=== PATIENT | male | born 1985 | race Caucasian/White ===

== ENCOUNTER 2016-08-26 14:10 | Emergency (ER) | payer OTHER ==
[~2016-08-26] VITALS: Ht 185.4 cm; Wt 89.4 kg
[~2016-08-26 14:10] MED LIST: OSEL75CA12 PO
[2016-08-26 14:13] VITALS: TEMP 36.8; Ht 185.4 cm; Wt 89.4 kg
[2016-08-26] MEDS ORDERED: SODIUM CHLORIDE 0.9% 1000ML 2,000 ML IV STA (15:12)
[2016-08-26] MEDS ORDERED: KETOROLAC TROMETHAMINE 30 MG/ML VIAL IV STA (15:12)
[2016-08-26] MEDS ORDERED: MoRPHine SULFATE 4 MG/ML 1 ML CARP\\VIAL IV STA (15:12)
[2016-08-26] MEDS ORDERED: ONDANSETRON INJ 2 MG/ML 2 ML VIAL IV STA (15:12)
[2016-08-26] MEDS ORDERED: IMIQ0.00 TOP (15:21)
[2016-08-26 16:10] LABS: BASO % 0.1 %; BASO ABS # 0.01 K/uL (0-0.2); COMPLETE YES; EOS % 1.9 %; HEMATOCRIT 47.7 % (42-52); IG% 0.5 %; LYMPH % 24.2 %; LYMPH ABS # 2.02 K/uL (1.2-3.4); MEAN CELL VOLUME 89.7 fL (80-100); MEAN CORPUSCULAR HGB CONC 35.6 g/dl (32-36); MEAN PLATELET VOLUME 10.8 fL (7.4-10.4); MONO % 7.2 %; NEUT % 66.1 %; PLATELET COUNT 206 K/uL (130-400); RED BLOOD COUNT 5.32 M/uL (4.7-6.1); WHITE BLOOD COUNT 8.35 K/uL (4.8-10.8)
[2016-08-26 16:26] LABS: URINE APPEARANCE CLEAR (CLEAR); URINE BILIRUBIN NEG (NEG); URINE COLOR YELLOW; URINE EPITHELIAL CELL AUTO 0-5 /lpf (0-5); URINE NITRITE NEG (NEG); URINE SPECIFIC GRAVITY 1.022 (1.000-1.030); UROBILINOGEN NEG (NEG); ZZUR CULT IF INDIC CLEAN CATCH NO
[2016-08-26 16:27] LABS: ALT/SGPT 41 U/L (12-78); BLOOD UREA NITROGEN 13 mg/dl (7-18); BUN/CREATININE RATIO 9.8 (10-20); CALCIUM 8.8 mg/dl (8.5-10.1); CARBON DIOXIDE 29 mmol/L (21-32); CHLORIDE 106 mmol/L (98-107); GLUCOSE 89 mg/dl (70-99); SODIUM 139 mmol/L (136-145)
[2016-08-26 16:30] LABS: ALKALINE PHOSPHATASE 72 U/L (45-117); AST/SGOT 16 U/L (15-37); MANUAL MICROSCOPIC REQUIRED? NO; REVIEW REQ? NO
--- NOTE | 2016-08-26 17:01 | DIAGNOSTIC IMAGING REPORT ---
ABDOMINAL ULTRASOUND, RIGHT UPPER QUADRANT HISTORY: Right upper quadrant abdominal pain. COMPARISON: None. FINDINGS: The liver is sonographically normal. There are no gallstones. No biliary ductal dilatation. The pancreatic body is normal. The head and tail are obscured. There is no right hydronephrosis. IMPRESSION: No significant abnormality identified within the right upper quadrant. Electronically signed by: Ankur Shepherd M.D. 08/26/2016 4:59 PM Dictated Date/Time: 08/26/2016 4:57 PM
[2016-08-26 17:47] LABS: LYME DISEASE AB IGG NEG (NEG); LYME DISEASE AB IGM NEG (NEG)
[2016-08-26 18:45] VITALS: BP 137/77; PULSE 85; O2SAT 98
--- NOTE | 2016-08-26 23:04 | EMERGENCY ROOM VISIT NOTE ---
History Report prepared by Maura: August Gomez Under the Supervision of: Dr. Arcenio Zaidi D.O. First contact with patient: 14:49 Chief Complaint: DIARRHEA Stated Complaint: SEVERE DIARRHEA, MUNOZ, DIZZY, HYPERTENSION, ABD. TOMEKA Nursing Triage Summary: pt c/o diarrhea for 2 weeks. since yesterday patient c/o headache, increased abdominal pain, joint pain and dizziness. pt referred from PCP. History of Present Illness The patient is a 30 year old male who presents to the Emergency Room with complaints of a worsening illness that started around 2 weeks ago. He says that he was seen at his [place] primary care physician earlier today, and was referred here for evaluation and treatment. The patient states that he has been having severe diarrhea around 3 to 5 times per day for the past few weeks. He describes the diarrhea as bright green with "little black things in it", but denies any melena or hematochezia. The patient says that his diarrhea worsened yesterday, and he woke up with severe generalized joint pain that goes down to his knees and ankles. The patient also has been having worsening abdominal pain , especially in his right upper quadrant, as well as a worsening migraine with dizziness and a bit of a sore throat. His abdominal pain worsened earlier today , and does not change with eating or drinking. He states that he feels like the room is spinning. The patient has no history of migraines. He denies any fevers, vomiting, nausea, chest pain, shortness of breath, ear pain, or pain or burning with urination. The patient notes that he was in [place] last week, and in [place] a few weeks before that. He says that the area in [place] he was in has a lot of ticks. The patient states that he was not backpacking, hiking, or drinking from streams. He denies any recent antibiotic use or any medical problems. The patient states that he has been keeping up with drinking Gatorade and water. His primary care physician was concerned with dehydration, however. The patient has no previous abdominal surgeries. Source of History: patient Onset: Around 2 weeks ago Position: other (global - illness) Timing: worsening Associated Symptoms: + sorethroat, + abdominal pain, + diarrhea, No fevers, No chest pain, No SOB, No nausea, No vomiting, No melena, No hematochezia, No urinary symptoms Note: Associated symptoms: Severe generalized joint pain that goes down to knees and ankles. Dizziness. Denies ear pain. Review of Systems See HPI for pertinent positives & negatives. A total of 10 systems reviewed and were otherwise negative. Past Medical & Surgical Medical Problems: (1) No Known Active Medical Problems Family History Diabetes mellitus FH: cancer Hypertension Social History Smoking Status: Never Smoker Smokeless Tobacco Use: No Alcohol Use: occasionally Occupation Status: employed Current/Historical Medications Scheduled Imiquimod (Imiquimod), 1 APPLN TOP UD Allergies Coded Allergies: Ciprofloxacin (Verified Allergy, Intermediate, Hallucinations, 08/26/16) Cefaclor (Verified Allergy, Unknown, HIVES, 08/26/16) AND SOB Physical Exam Vital Signs Date Time Temp Pulse Resp B/P (MAP) Pulse Ox O2 Delivery O2 Flow Rate FiO2 08/26/16 18:45 85 18 137/77 98 08/26/16 18:15 85 18 137/77 98 Room Air 08/26/16 15:47 82 18 135/80 97 Room Air 08/26/16 14:13 36.8 98 20 130/87 98 Room Air Physical Exam GENERAL: sitting up in bed, disheveled, no acute distress, nontoxic EYE EXAM: normal conjunctiva OROPHARYNX: no exudate, no erythema, lips, buccal mucosa, and tongue normal and mucous membranes are moist NECK: supple, no nuchal rigidity, no adenopathy, non-tender LUNGS: Clear to auscultation. Normal chest wall mechanics HEART: no murmurs, S1 normal and S2 normal ABDOMEN: abdomen soft, minimal tenderness in right upper quadrant, normo-active bowel sounds, no masses, no rebound or guarding. BACK: No CVA tenderness SKIN: no rashes and no bruising UPPER EXTREMITIES: upper extremities are grossly normal. LOWER EXTREMITIES: No pitting edema. NEURO EXAM: Normal sensorium, cranial nerves II-XII grossly intact, normal speech, no gross weakness of arms, no gross weakness of legs. Medical Decision & Procedures ER Provider Diagnostic Interpretation: US results as stated below per my review and the radiologist's interpretation: ABDOMINAL ULTRASOUND, RIGHT UPPER QUADRANT HISTORY: Right upper quadrant abdominal pain. COMPARISON: None. FINDINGS: The liver is sonographically normal. There are no gallstones. No biliary ductal dilatation. The pancreatic body is normal. The head and tail are obscured. There is no right hydronephrosis. IMPRESSION: No significant abnormality identified within the right upper quadrant. Electronically signed by: Ankur Shepherd M.D. 08/26/2016 4:59 PM Dictated Date/Time: 08/26/2016 4:57 PM Laboratory Results 08/26/16 15:40 Red Blood Count 5.32, Mean Corpuscular Volume 89.7, Mean Corpuscular Hemoglobin 32.0, Mean Corpuscular Hemoglobin Concent 35.6, Mean Platelet Volume 10.8, Neutrophils (%) (Auto) 66.1, Lymphocytes (%) (Auto) 24.2, Monocytes (%) (Auto) 7.2, Eosinophils (%) (Auto) 1.9, Basophils (%) (Auto) 0.1, Neutrophils # (Auto) 5.52, Lymphocytes # (Auto) 2.02, Monocytes # (Auto) 0.60, Eosinophils # (Auto) 0.16, Basophils # (Auto) 0.01 08/26/16 15:40 Test 08/26/16 15:40 White Blood Count 8.35 K/uL (4.8-10.8) Red Blood Count 5.32 M/uL (4.7-6.1) Hemoglobin 17.0 g/dL (14.0-18.0) Hematocrit 47.7 % (42-52) Mean Corpuscular Volume 89.7 fL (80-100) Mean Corpuscular Hemoglobin 32.0 pg (25-34) Mean Corpuscular Hemoglobin Concent 35.6 g/dl (32-36) Platelet Count 206 K/uL (130-400) Mean Platelet Volume 10.8 fL (7.4-10.4) Neutrophils (%) (Auto) 66.1 % Lymphocytes (%) (Auto) 24.2 % Monocytes (%) (Auto) 7.2 % Eosinophils (%) (Auto) 1.9 % Basophils (%) (Auto) 0.1 % Neutrophils # (Auto) 5.52 K/uL (1.4-6.5) Lymphocytes # (Auto) 2.02 K/uL (1.2-3.4) Monocytes # (Auto) 0.60 K/uL (0.11-0.59) Eosinophils # (Auto) 0.16 K/uL (0-0.5) Basophils # (Auto) 0.01 K/uL (0-0.2) RDW Standard Deviation 39.5 fL (36.4-46.3) RDW Coefficient of Variation 12.1 % (11.5-14.5) Immature Granulocyte % (Auto) 0.5 % Immature Granulocyte # (Auto) 0.04 K/uL (0.00-0.02) Urine Color YELLOW Urine Appearance CLEAR (CLEAR) Urine pH 6.0 (4.5-7.5) Urine Specific [place] 1.022 (1.000-1.030) Urine Protein NEG (NEG) Urine Glucose (UA) NEG (NEG) Urine Ketones NEG (NEG) Urine Occult Blood NEG (NEG) Urine Nitrite NEG (NEG) Urine Bilirubin NEG (NEG) Urine Urobilinogen NEG (NEG) Urine Leukocyte Esterase NEG (NEG) Urine WBC (Auto) 0 /hpf (0-5) Urine RBC (Auto) 0-4 /hpf (0-4) Urine Hyaline Casts (Auto) 0 /lpf (0-5) Urine Epithelial Cells (Auto) 0-5 /lpf (0-5) Urine Bacteria (Auto) NEG (NEG) Anion Gap 4.0 mmol/L (3-11) Est Creatinine Clear Calc Drug Dose 93.0 ml/min Estimated GFR () 84.3 Estimated GFR (Non- 72.7 BUN/Creatinine Ratio 9.8 (10-20) Calcium Level 8.8 mg/dl (8.5-10.1) Total Bilirubin 0.4 mg/dl (0.2-1) Direct Bilirubin < 0.1 mg/dl (0-0.2) Aspartate Amino Transf (AST/SGOT) 16 U/L (15-37) Alanine Aminotransferase (ALT/SGPT) 41 U/L (12-78) Alkaline Phosphatase 72 U/L (45-117) Total Protein 6.9 gm/dl (6.4-8.2) Albumin 3.6 gm/dl (3.4-5.0) Lipase 178 U/L (73-393) Lyme Disease IgG Antibody NEG (NEG) Lyme Disease IgM Antibody NEG (NEG) Date/Time Source Procedure Growth Status 08/26/16 15:40 Stool C.difficile Toxin B Gene (PCR) - Final No C. difficile toxin B gene detected Complete Laboratory results per my review. Medications Administered Medications (Trade) Dose Ordered Sig/Tyrell Route Start Time Stop Time Status Last Admin Dose Admin Morphine Sulfate (MoRPHine SULFATE INJ) 4 mg NOW STAT IV 08/26/16 15:12 08/26/16 15:13 DC 08/26/16 15:44 4 MG Ketorolac Tromethamine (Toradol Inj) 30 mg NOW STAT IV 08/26/16 15:12 08/26/16 15:13 DC 08/26/16 15:43 30 MG Ondansetron HCl (Zofran Inj) 4 mg NOW STAT IV 08/26/16 15:12 08/26/16 15:13 DC 08/26/16 15:43 4 MG Sodium Chloride 2,000 ml @ 999 mls/hr Q2H1M STAT IV 08/26/16 15:12 08/26/16 17:12 DC 08/26/16 15:42 999 MLS/HR ED Course ED COURSE: Vital signs were reviewed and showed hypertensive vitals. The patients medical record was reviewed The above diagnostic studies were performed and reviewed. ED treatments and interventions as stated above. 1452: The patient was evaluated in room C5. A complete history and physical examination was performed. 1512: Ordered NSS 2000 ml @ 999 mls/hr IV, Zofran Inj 4 mg IV, Toradol Inj 30 mg IV, Morphine Sulfate Inj 4 mg IV. 1810: Upon reevaluation, the patient is resting comfortably.I discussed my findings with the patient and he understands and agrees with the treatment plan. Based on the patients age, coexisting illnesses, exam and lab findings the decision to treat as an outpatient was made. The patient remained stable while under my care. The patient appeared well at the time of discharge. Medical Decision Differential diagnoses includes but is not limited to gastritis, peptic ulcer disease, GERD, gallbladder disease, pancreatitis, small bowel obstruction, acute coronary syndrome, pericarditis, ischemic bowel, irritable bowel disease, irritable bowel syndrome, appendicitis, diverticulitis, malignancy, hernia, urinary tract infection, torsion, perforation, trauma, infectious. Blood Pressure Screening: The patient was found to have a slightly elevated blood pressure due to circumstances. I do not believe that the patient requires hypertension monitoring. Medication Reconciliation: I attest that I have personally reviewed the patient' s current medication list. Patient is a 30-year-old male who presents the ER for diarrhea which has been present for the past 2 weeks. No travel outside the [place]. No drinking from streams. No significant past medical history. He also admits to right upper quadrant abdominal pain which started earlier today. His abdominal exam is fairly benign. CBC along with BMP, LFTs, bilirubin and lipase were normal. UA was negative. Lyme was negative. He is given fluids and pain medication with improvement of symptoms. Ultrasound of the gallbladder Was negative. C. difficile was negative. Patient was updated at bedside and discharged follow- up with his PCP for abdominal pain and persistent diarrhea. Discussed with Pt concerning signs and symptoms to watch out for. Pt was instructed to follow up with their PCP and discussed with the patient their option to return to the ED at anytime for persistent or worsening symptoms. The appropriate anticipatory guidance and out-patient management, including indications for return to the emergency department, were explained at length to the patient and understood. Impression Primary Impression: Abdominal pain Additional Impression: Diarrhea Scribe Attestation The scribe's documentation has been prepared under my direction and personally reviewed by me in its entirety. I confirm that the note above accurately reflects all work, treatment, procedures, and medical decision making performed by me. Departure Information Dispostion Home / Self-Care Referrals No Doctor, Assigned (PCP) Chela Hines PA-C Forms HOME CARE DOCUMENTATION FORM, IMPORTANT VISIT INFORMATION, WORK / SCHOOL INSTRUCTIONS Patient Instructions Abdominal Pain - [facility], ED Diarrhea Viral, My [facility] Additional Instructions Please follow up with your primary care doctor with in the next 24 hours. Any worsening of your symptoms, please return to the ED immediately. This includes fevers greater than 100.4, blood in your stool, passing out, worsening pain, persistent nausea vomiting, or any other concerning signs or symptoms from your stand point. Please follow up with GI in the next 3-5 days. You'll receive a phone call from the ER if your stool cultures are positive in the next 48 hours. Problem Qualifiers Primary Impression: Abdominal pain Abdominal location: unspecified location Qualified Codes: R10.9 - Unspecified abdominal pain Additional Impression: Diarrhea Diarrhea type: unspecified type Qualified Codes: R19.7 - Diarrhea, unspecified
== END 2016-08-26 18:47 | disposition home or self-care (01) ==
LOC: C.EDB 14:11 → C.EDC 18:47
DX: R10.9 Unspecified abdominal pain (principal); R19.7 Diarrhea, unspecified; Z83.3 Family history of diabetes mellitus; Z82.49 Family history of ischemic heart disease and other diseases of the circulatory system

== ENCOUNTER 2016-12-06 17:29 | Emergency (ER) | payer OTHER ==
[~2016-12-06] VITALS: Ht 185.4 cm; Wt 89.5 kg
[~2016-12-06 17:29] MED LIST changes: +IMIQ0.00 TOP; -OSEL75CA12 PO
[2016-12-06 17:34] VITALS: TEMP 36.9; Ht 185.4 cm; Wt 89.5 kg
--- NOTE | 2016-12-06 19:48 | DIAGNOSTIC IMAGING REPORT ---
TESTICULAR ULTRASOUND CLINICAL HISTORY: Left testicular pain COMPARISON STUDY: No previous studies for comparison. FINDINGS: The right testis measures 58 x 27 x 40 mm. The left testis measures 58 x 20 x 35 mm. No intratesticular masses are visualized. There is no evidence of testicular torsion. There is no evidence of epididymal hyperemia. There is trace bilateral scrotal fluid. IMPRESSION: 1. No evidence of intratesticular mass 2. No evidence of testicular torsion Electronically signed by: Sourav Baker M.D. 12/06/2016 7:47 PM Dictated Date/Time: 12/06/2016 7:46 PM
[2016-12-06] MEDS ORDERED: LEVO-366 PO (20:04)
[2016-12-06 20:29] VITALS: BP 140/70; PULSE 70; O2SAT 98
--- NOTE | 2016-12-07 01:20 | EMERGENCY ROOM VISIT NOTE ---
History Report prepared by Maura: Sandra Savage Under the Supervision of: Dr. Bonifacio Rodriguez M.D. First contact with patient: 18:02 Chief Complaint: TESTICULAR PAIN Stated Complaint: TESTICULAR PAIN- PHYSICIAN REFERRED Nursing Triage Summary: pt sent here by pcp for possible testicular torsion. pain started yesterday. feels nauseated. left testicle History of Present Illness The patient is a 31 year old male who presents to the Emergency Room with complaints of constant throbbing left testicle pain beginning yesterday afternoon. The patient states that he began feeling throbbing pain in his left testicle yesterday that radiates into his abdomen. He reports that the pain is in the area where the "cord meets the testicle" and notes that there is a hard region on the testicle. The patient explains that it feels sensitive like he was kicked in the testicle and the pain will not resolve. He complains of nausea and urinary frequency. He denies any fever, vomiting, and penile discharge. The patient states that he is not sexually active and when he was years ago, he used protection and was active with men. He denies any history of STIs. He notes that he was just seen by his PCP and they did a urinalysis that was clear. Source of History: patient Onset: yesterday afternoon Position: other (left testicle) Quality: other (throbbing) Timing: constant Associated Symptoms: + nausea, No fevers, No vomiting Note: He complains of urinary frequency. He denies any penile discharge. Review of Systems See HPI for pertinent positives & negatives. A total of 10 systems reviewed and were otherwise negative. Past Medical & Surgical Medical Problems: (1) No Known Active Medical Problems Family History Diabetes mellitus FH: cancer Hypertension Social History Smoking Status: Never Smoker Alcohol Use: occasionally Occupation Status: employed Current/Historical Medications Scheduled Imiquimod (Imiquimod), 1 APPLN TOP UD Levofloxacin (Levaquin), 500 MG PO DAILY Allergies Coded Allergies: Ciprofloxacin (Verified Allergy, Intermediate, Hallucinations, 12/06/16) Cefaclor (Verified Allergy, Unknown, HIVES, 12/06/16) AND SOB Levofloxacin (Unverified Allergy, Unknown, PSYCHOTIC, 12/06/16) Physical Exam Vital Signs Date Time Temp Pulse Resp B/P (MAP) Pulse Ox O2 Delivery O2 Flow Rate FiO2 12/06/16 20:29 70 18 140/70 98 12/06/16 17:34 36.9 87 18 166/102 98 Room Air Physical Exam Constitutional: Vital signs reviewed. Eyes: Pupils are equal round reactive to light. Conjunctiva are noninjected. ENT: Pharynx is clear without erythema or exudate. Mucous membranes are moist. Neck supple without meningeal signs. Respiratory: Clear to auscultation bilaterally. Breath sounds are equal bilaterally. Cardiovascular: Regular rate and rhythm. No rubs or gallops. GI: Soft, nondistended and nontender. Bowel sounds are present. Musculoskeletal: No peripheral edema. No lower extremity tenderness. Integumentary: No cyanosis. Neurological: The patient is awake and alert. No focal deficits. Psychiatric: Normal affect. : Left superior testicular tenderness, normal cremasteric reflexes bilaterally , no urethral discharge, no swelling or redness to the scrotum. No inguinal hernias. Medical Decision & Procedures ER Provider Diagnostic Interpretation: Radiology results as stated below per my review and the radiologist's interpretation: TESTICULAR ULTRASOUND FINDINGS: The right testis measures 58 x 27 x 40 mm. The left testis measures 58 x 20 x 35 mm. No intratesticular masses are visualized. There is no evidence of testicular torsion. There is no evidence of epididymal hyperemia. There is trace bilateral scrotal fluid. IMPRESSION: 1. No evidence of intratesticular mass 2. No evidence of testicular torsion Electronically signed by: Sourav Baker M.D. 12/06/2016 7:47 PM Dictated Date/Time: 12/06/2016 7:46 PM Laboratory Results Test 12/06/16 18:10 Laboratory results as reviewed by me. ED Course 180: The patient was evaluated in room A9. A complete history and physical exam was performed. 1955: I updated the patient on his test results. He says that he is not allergic to Fluoroquinolones and can take Cipro or Levaquin. 2002: Upon reevaluation, the patient appeared to have improvement of his symptoms. I discussed tonight's findings with the patient. He verbalized agreement of the treatment plan. The patient was discharged home. 2026: The patient states that he cannot take Levaquin but can take Cipro which he states his PCP called in for him. He states that the coverage for bacteria is not optimal for his diagnosis. Medical Decision This is a 31-year-old male who presents with testicular tenderness. Differential diagnosis includes epididymitis, orchitis, STI, kidney stone, testicular torsion, testicular mass. I did perform a limited focused review of portions of the patient's old chart on the electronic medical record. The patient has had no recent pertinent visits to this hospital. I did evaluate the patient as noted above. The patient is presenting with testicular tenderness on the left side since yesterday. On examination he has tenderness over the left superior testicle and epididymis. He did complain of some urinary complaints but had a urinalysis done at his doctor's office prior to arrival which was reported as normal. He is sexually active with men but has not been active for over a year and a half and was tested for GC and chlamydia in the interim. He states he has never had unprotected sex order a history of STI. I did obtain urethral swab for GC and chlamydia. I did order an ultrasound of the scrotum. I did review the images myself as well as the radiology report as described above. There is no evidence of torsion or acute abnormality. I did discuss the test results with patient. I did wish to treat him for epididymoorchitis. Unfortunately he does have several drug allergies and adverse reactions which limited the antibiotic choice. He does state that he can take Cipro but he cannot take Levaquin. He does state that he has a true allergy to cephalosporins. He states that his doctor already called in a prescription for Cipro which he will take. He was advised to follow closely with his doctor and he was discharged in good condition. He was given return instructions as outlined below. Medication Reconcilliation Current Medication List: was personally reviewed by me Blood Pressure Screening Patient's blood pressure: Elevated blood pressure Blood pressure disposition: Referred to PCP Impression Primary Impression: Epididymo-orchitis Scribe Attestation The scribe's documentation has been prepared under my direct and personally reviewed by me in its entirety. I confirm that the note above accurately reflects all work, treatment, procedures, and medical decision making performed by me. Departure Information Dispostion Home / Self-Care Prescriptions Levofloxacin (Levaquin) 500 Mg Tab 500 MG PO DAILY for 10 Days, #10 TAB Prov: Bonifacio Rodriguez M.D. 12/06/16 Referrals Chela Hines PA-C (PCP) Forms HOME CARE DOCUMENTATION FORM, IMPORTANT VISIT INFORMATION, WORK / SCHOOL INSTRUCTIONS Patient Instructions Epididymitis Orchitis, My [facility] Additional Instructions You have been examined and treated today on an emergency basis only. This is not a substitute for, or an effort to provide, complete comprehensive medical care. It is impossible to recognize and treat all injuries or illnesses in a single emergency department visit. It is therefore important that you follow up closely with your physician. Call as soon as possible for an appointment. Return for worsening symptoms or if you develop fever, vomiting, discharge from the penis, redness or swelling to your testicle or any other concerning symptoms.
[2016-12-09 00:32] LABS: CHLAMYDIA TRACH RNA*** NOT DETECTED (NOT DETECTED); GC (NEIS GONORRHOEAE)RNA** NOT DETECTED (NOT DETECTED)
== END 2016-12-06 20:30 | disposition home or self-care (01) ==
LOC: C.EDB 17:31 → C.EDA 20:30
DX: N45.3 Epididymo-orchitis (principal); Z83.3 Family history of diabetes mellitus; Z82.49 Family history of ischemic heart disease and other diseases of the circulatory system

== ENCOUNTER 2017-02-06 19:14 | Emergency (ER) | payer OTHER ==
[~2017-02-06] VITALS: Ht 185.4 cm; Wt 101.6 kg
[~2017-02-06 19:14] MED LIST changes: -IMIQ0.00 TOP; +IMIQ5CRE4 TOP
[2017-02-06 19:20] VITALS: TEMP 37.1; Ht 185.4 cm; Wt 101.6 kg
[2017-02-06] MEDS ORDERED: SODIUM CHLORIDE 0.9% 1000ML 1,000 ML IV STA (19:41)
[2017-02-06] MEDS ORDERED: ONDANSETRON INJ 2 MG/ML 2 ML VIAL IV STA (19:41)
[2017-02-06] MEDS ORDERED: MoRPHine SULFATE 4 MG/ML 1 ML CARP\\VIAL IV STA (19:41)
[2017-02-06] MEDS ORDERED: MoRPHine SULFATE 4 MG/ML 1 ML CARP\\VIAL IV PRN (19:45)
[2017-02-06] MEDS ORDERED: OPTIRAY 320 IV PRN (19:45)
[2017-02-06] MEDS ORDERED: DiphenhydrAMINE HCL 50 MG/ML VIAL IV STA (20:02)
[2017-02-06] MEDS ORDERED: DiphenhydrAMINE HCL 50 MG/ML VIAL ONE (20:04)
[2017-02-06 20:09] LABS: BASO % 0.1 %; BASO ABS # 0.01 K/uL (0-0.2); COMPLETE YES; EOS % 1.1 %; HEMATOCRIT 44.1 % (42-52); IG% 0.4 %; LYMPH % 24.6 %; LYMPH ABS # 2.49 K/uL (1.2-3.4); MEAN CELL VOLUME 88.7 fL (80-100); MEAN CORPUSCULAR HEMOGLOBIN 31.8 pg (25-34); MEAN CORPUSCULAR HGB CONC 35.8 g/dl (32-36); MEAN PLATELET VOLUME 10.2 fL (7.4-10.4); MONO % 7.3 %; NEUT % 66.5 %; PLATELET COUNT 228 K/uL (130-400); RED BLOOD COUNT 4.97 M/uL (4.7-6.1); WHITE BLOOD COUNT 10.11 K/uL (4.8-10.8)
[2017-02-06 20:11] LABS: URINE APPEARANCE CLEAR (CLEAR); URINE BILIRUBIN NEG (NEG); URINE COLOR YELLOW; URINE NITRITE NEG (NEG); UROBILINOGEN NEG (NEG)
[2017-02-06] MEDS ORDERED: HYDROmorphone INJ 0.5 MG/0.5 ML SYR IV PRN (20:15)
[2017-02-06 20:16] LABS: BUN/CREATININE RATIO 12.5 (10-20); CREATININE 1.06 mg/dl (0.60-1.40); POTASSIUM 3.7 mmol/L (3.5-5.1)
[2017-02-06 20:23] LABS: MANUAL MICROSCOPIC REQUIRED? NO; REVIEW REQ? NO
[2017-02-06 22:30] VITALS: BP 160/103; PULSE 100; O2SAT 100
--- NOTE | 2017-02-06 22:32 | DIAGNOSTIC IMAGING REPORT ---
CT SCAN OF THE ABDOMEN AND PELVIS WITH IV CONTRAST CLINICAL HISTORY: Right lower quadrant abdominal pain. COMPARISON STUDY: Abdominal ultrasound dated 08/26/2016. TECHNIQUE: Following the IV administration of 116 cc of Optiray 320, CT scan of the abdomen and pelvis is performed from the lung bases to the proximal femora. Images are reviewed in the axial, sagittal, and coronal planes. IV contrast was administered without complication. A dose lowering technique was utilized adhering to the principles of ALARA. CT DOSE: 798.16 mGy.cm FINDINGS: Lung bases: The heart is normal in size and without pericardial effusion. The lung bases are clear. Liver: The contrast-enhanced liver is normal in size, contour, and attenuation. There is no intrahepatic biliary ductal dilatation. The hepatic veins and portal veins are patent. Gallbladder: Unremarkable. Spleen: Normal in size and attenuation. Pancreas: Unremarkable. Adrenal glands: Unremarkable. Kidneys: The contrast enhanced kidneys are normal in size and without hydronephrosis. The kidneys enhance symmetrically. Abdominal vasculature: The abdominal aorta is normal in course and caliber. Bowel: There is a fat-containing lesion identified along the antimesenteric border of the sigmoid colon with surrounding inflammation seen on axial image #390. This measures 2.7 cm and is typical appearance for epiploic appendagitis. No bowel obstruction is seen. The appendix is well-visualized and normal. Peritoneum: There is no intraperitoneal free air or abdominal ascites. There is a small fat-containing umbilical hernia. Lymphadenopathy: None. Pelvic viscera: The bladder, prostate, and seminal vesicles are normal as visualized. Skeletal structures: No lytic or blastic lesions are seen. IMPRESSION: Findings are consistent with epiploic appendagitis of the sigmoid colon. Electronically signed by: Marbin Rizvi M.D. 02/06/2017 10:31 PM Dictated Date/Time: 02/06/2017 10:26 PM
--- NOTE | 2017-02-06 22:54 | EMERGENCY ROOM VISIT NOTE ---
History First contact with patient: 19:28 Chief Complaint: ABDOMINAL PAIN Stated Complaint: ABD PAIN History of Present Illness The patient is a 31 year old male who presents to the Emergency Room with complaints of abdominal pain for the past 2 days. The patient reports that initially the pain felt like he was punched in the gut. Now the pain seems to be focused around the umbilicus and right lower quadrant region. The pain is worsened with ambulation. He reports nausea without vomiting. He denies any recent diarrhea, constipation or urinary symptoms. He reports that it feels like his abdomen is bloated, but has not had any flatulence or belching. He denies any pain extending into the back or testicles. The patient denies any prior history of abdominal surgeries. He rates his discomfort an 8 out of 10. Review of Systems HEENT: Denies dizziness, visual problems, hearing loss, tinnitus. Denies difficulty swallowing or oral lesions. PULMONARY: Denies cough, shortness of breath, sputum production or hemoptysis. CARDIOVASCULAR: Denies chest pain, palpitations, dyspnea on exertion, orthopnea or peripheral edema. GASTROINTESTINAL: See history of present illness. GENITOURINARY: Denies dysuria, frequency, urgency or nocturia. NEUROLOGIC: Denies history of epilepsy, CVA, TIA or chronic headaches. MUSCULOSKELETAL: Denies history of joint tenderness/swelling. SKIN: Denies rashes or lesions. PSYCHIATRIC: Denies history of depression or mental illness. ENDOCRINE: Denies history of diabetes or thyroid disorders. Past Medical/Surgical History Medical Problems: (1) No Known Active Medical Problems Family History Diabetes mellitus FH: cancer Hypertension Social History Smoking Status: Never Smoker Alcohol Use: occasionally Marital Status: single Occupation Status: employed Current/Historical Medications Scheduled Imiquimod (Imiquimod), 1 APPLN TOP Physical Exam Vital Signs Date Time Temp Pulse Resp B/P (MAP) Pulse Ox O2 Delivery O2 Flow Rate FiO2 02/06/17 22:30 100 20 160/103 100 Room Air 02/06/17 21:13 89 18 150/86 98 Room Air 02/06/17 19:20 37.1 92 18 153/96 99 Room Air Physical Exam CONSTITUTIONAL: Healthy and well nourished. Alert and oriented X 3 with positive affect. Patient appears in moderate discomfort from pain. HEENT: Normocephalic, atraumatic. Pupils equal, round and reactive. No scleral icterus or conjunctival injection/pallor. NECK: Full active range of motion without discomfort. RESPIRATORY: Clear to auscultation bilaterally with no wheezing, crackles, rhonchi or stridor. CARDIOVASCULAR: Regular rate and rhythm with no murmurs, rubs or gallops. GASTROINTESTINAL: Bowel sounds present in all quadrants. Patient has positive McBurney's point tenderness, positive Rovsing sign, positive psoas line and positive heel tap. Negative CVA tenderness. No abdominal rigidity, guarding or rebound. MUSCULOSKELETAL: Full range of motion of all joints without discomfort. INTEGUMENTARY: No rash or other significant dermatologic conditions noted. HEMATOLOGIC: No ecchymosis or petechiae noted. NEUROLOGIC: No focal neurologic deficits noted. Medical Decision & Procedures ER Provider Diagnostic Interpretation: Enhanced CT of the abdomen and pelvis shows an epiploic appendagitis without evidence for acute appendicitis, diverticulitis, free air, obstruction or other concerning findings. Radiologist report is as follows: CT SCAN OF THE ABDOMEN AND PELVIS WITH IV CONTRAST CLINICAL HISTORY: Right lower quadrant abdominal pain. COMPARISON STUDY: Abdominal ultrasound dated 08/26/2016. TECHNIQUE: Following the IV administration of 116 cc of Optiray 320, CT scan of the abdomen and pelvis is performed from the lung bases to the proximal femora. Images are reviewed in the axial, sagittal, and coronal planes. IV contrast was administered without complication. A dose lowering technique was utilized adhering to the principles of ALARA. CT DOSE: 798.16 mGy.cm FINDINGS: Lung bases: The heart is normal in size and without pericardial effusion. The lung bases are clear. Liver: The contrast-enhanced liver is normal in size, contour, and attenuation. There is no intrahepatic biliary ductal dilatation. The hepatic veins and portal veins are patent. Gallbladder: Unremarkable. Spleen: Normal in size and attenuation. Pancreas: Unremarkable. Adrenal glands: Unremarkable. Kidneys: The contrast enhanced kidneys are normal in size and without hydronephrosis. The kidneys enhance symmetrically. Abdominal vasculature: The abdominal aorta is normal in course and caliber. Bowel: There is a fat-containing lesion identified along the antimesenteric border of the sigmoid colon with surrounding inflammation seen on axial image #390. This measures 2.7 cm and is typical appearance for epiploic appendagitis. No bowel obstruction is seen. The appendix is well-visualized and normal. Peritoneum: There is no intraperitoneal free air or abdominal ascites. There is a small fat-containing umbilical hernia. Lymphadenopathy: None. Pelvic viscera: The bladder, prostate, and seminal vesicles are normal as visualized. Skeletal structures: No lytic or blastic lesions are seen. IMPRESSION: Findings are consistent with epiploic appendagitis of the sigmoid colon. Laboratory Results 02/06/17 19:30 Red Blood Count 4.97, Mean Corpuscular Volume 88.7, Mean Corpuscular Hemoglobin 31.8, Mean Corpuscular Hemoglobin Concent 35.8, Mean Platelet Volume 10.2, Neutrophils (%) (Auto) 66.5, Lymphocytes (%) (Auto) 24.6, Monocytes (%) (Auto) 7.3, Eosinophils (%) (Auto) 1.1, Basophils (%) (Auto) 0.1, Neutrophils # (Auto) 6.72, Lymphocytes # (Auto) 2.49, Monocytes # (Auto) 0.74, Eosinophils # (Auto) 0.11, Basophils # (Auto) 0.01 02/06/17 19:30 Test 02/06/17 19:28 02/06/17 19:30 Urine Color YELLOW Urine Appearance CLEAR (CLEAR) Urine pH 5.0 (4.5-7.5) Urine Specific White 1.020 (1.000-1.030) Urine Protein NEG (NEG) Urine Glucose (UA) NEG (NEG) Urine Ketones NEG (NEG) Urine Occult Blood NEG (NEG) Urine Nitrite NEG (NEG) Urine Bilirubin NEG (NEG) Urine Urobilinogen NEG (NEG) Urine Leukocyte Esterase NEG (NEG) White Blood Count 10.11 K/uL (4.8-10.8) Red Blood Count 4.97 M/uL (4.7-6.1) Hemoglobin 15.8 g/dL (14.0-18.0) Hematocrit 44.1 % (42-52) Mean Corpuscular Volume 88.7 fL (80-100) Mean Corpuscular Hemoglobin 31.8 pg (25-34) Mean Corpuscular Hemoglobin Concent 35.8 g/dl (32-36) Platelet Count 228 K/uL (130-400) Mean Platelet Volume 10.2 fL (7.4-10.4) Neutrophils (%) (Auto) 66.5 % Lymphocytes (%) (Auto) 24.6 % Monocytes (%) (Auto) 7.3 % Eosinophils (%) (Auto) 1.1 % Basophils (%) (Auto) 0.1 % Neutrophils # (Auto) 6.72 K/uL (1.4-6.5) Lymphocytes # (Auto) 2.49 K/uL (1.2-3.4) Monocytes # (Auto) 0.74 K/uL (0.11-0.59) Eosinophils # (Auto) 0.11 K/uL (0-0.5) Basophils # (Auto) 0.01 K/uL (0-0.2) RDW Standard Deviation 39.3 fL (36.4-46.3) RDW Coefficient of Variation 12.5 % (11.5-14.5) Immature Granulocyte % (Auto) 0.4 % Immature Granulocyte # (Auto) 0.04 K/uL (0.00-0.02) Anion Gap 8.0 mmol/L (3-11) Est Creatinine Clear Calc Drug Dose 125.3 ml/min Estimated GFR () 107.1 Estimated GFR (Non- 92.4 BUN/Creatinine Ratio 12.5 (10-20) Calcium Level 9.0 mg/dl (8.5-10.1) Total Bilirubin 0.6 mg/dl (0.2-1) Direct Bilirubin 0.1 mg/dl (0-0.2) Aspartate Amino Transf (AST/SGOT) 24 U/L (15-37) Alanine Aminotransferase (ALT/SGPT) 45 U/L (12-78) Alkaline Phosphatase 81 U/L (45-117) Total Protein 7.6 gm/dl (6.4-8.2) Albumin 4.0 gm/dl (3.4-5.0) Lipase 124 U/L (73-393) The above labs were reviewed. The patient does have a left shift and bandemia without white count. LFTs, lipase, partial renal profile and urinalysis are unremarkable. Medications Administered Medications (Trade) Dose Ordered Sig/Tyrell Route Start Time Stop Time Status Last Admin Dose Admin Sodium Chloride 1,000 ml @ 0 mls/hr Q0M STAT IV 02/06/17 19:41 02/06/17 19:45 DC 02/06/17 19:41 1,000 MLS/HR Ondansetron HCl (Zofran Inj) 4 mg NOW STAT IV 02/06/17 19:41 02/06/17 19:45 DC 02/06/17 19:57 4 MG Morphine Sulfate (MoRPHine SULFATE INJ) 4 mg NOW STAT IV 02/06/17 19:41 02/06/17 19:45 DC 02/06/17 19:57 4 MG Diphenhydramine HCl (Benadryl Inj) 25 mg NOW STAT IV 02/06/17 20:02 02/06/17 20:04 DC 02/06/17 20:02 25 MG Procedure 1. IV hydration: Normal saline 1 L bolus 2. IV medications: The patient was initially administered morphine 4 mg and Zofran 4 mg IVP. The patient developed itching from the morphine, and was administered Benadryl 25 mg IVP. ED Course Patient history and physical exam were performed. Nurse's notes were reviewed. Vital signs were reviewed and were normal. IV access was established, and labs were drawn. The patient was hydrated with normal saline, and received IV medications as discussed in the previous Procedure section. Review of labs shows a normal white count. LFTs, lipase, partial renal profile and urinalysis were unremarkable. After the patient was administered IV morphine, he developed pruritus and was administered Benadryl 25 mg IVP. The patient had no further significant pain and tolerated oral contrast well. Enhanced CT of the abdomen and pelvis shows an epiploic appendagitis without evidence for acute appendicitis, diverticulitis, bowel obstruction or other acute findings. The case was further discussed with Dr. Villanueva, ED at any physician, who suggested conservative management with NSAIDs and Tylenol. The patient was encouraged to follow-up with his PCP as needed for further management. Return to the emergency department for any progressively worsening pain, rectal bleeding or developing fever. The patient was happy with plan of care, voiced understanding of all discharge instructions, and rated his discomfort a 3 out of 10 at the conclusion of my exam. Medical Decision Differentials considered included acute appendicitis, diverticulitis, bowel obstruction, mesenteric adenitis, ischemic gut, volvulus and other surgical etiologies. I do not suspect testicular torsion or epididymitis. I also do not suspect musculoskeletal or cardiopulmonary etiology. CT scan does show evidence for an epiploic appendicitis. Medication Reconcilliation Current Medication List: was personally reviewed by me Blood Pressure Screening Patient's blood pressure: Normal blood pressure Impression Primary Impression: Epiploic appendagitis Departure Information Referrals Chela Hines PA-C (PCP) Patient Instructions [facility]
== END 2017-02-06 23:00 | disposition home or self-care (01) ==
LOC: C.EDB 19:15
DX: K63.89 Other specified diseases of intestine (principal); Q43.8 Other specified congenital malformations of intestine; Z83.3 Family history of diabetes mellitus; Z80.9 Family history of malignant neoplasm, unspecified; Z82.49 Family history of ischemic heart disease and other diseases of the circulatory system